=== PATIENT | female | born 1945 | race Caucasian/White ===

== ENCOUNTER 2017-09-22 16:07 | Emergency (ER) | payer MEDICARE, OTHER, MEDICAID ==
[2017-09-22] MEDS ORDERED: RANI-366 PO (16:36)
[2017-09-22] MEDS ORDERED: POTA2TAB29 PO (16:36)
[2017-09-22] MEDS ORDERED: GABA-549 PO (16:36)
[2017-09-22] MEDS ORDERED: METH4TAB67 PO (16:36)
[2017-09-22] MEDS ORDERED: IBUP600T22 PO (16:36)
[2017-09-22] MEDS ORDERED: ALBU8.5H IH (16:36)
[2017-09-22] MEDS ORDERED: FLUT16SP19 NS (16:36)
[2017-09-22] MEDS ORDERED: CHOL10005 PO (16:36)
[2017-09-22] MEDS ORDERED: ISOS30TA54 PO (16:36)
[2017-09-22] MEDS ORDERED: ASPI-1471 PO (16:36)
[2017-09-22] MEDS ORDERED: CITA-145 PO (16:36)
[2017-09-22] MEDS ORDERED: VITS1TAB2 PO (16:36)
[2017-09-22] MEDS ORDERED: OXYB5TAB86 PO (16:36)
[2017-09-22] MEDS ORDERED: LOSA50TA72 PO (16:36)
[2017-09-22] MEDS ORDERED: HYDR-4225 PO (16:36)
[2017-09-22] MEDS ORDERED: LACT1CAP6 PO (16:36)
[2017-09-22] MEDS ORDERED: THEO400T9 PO (16:36)
[2017-09-22] MEDS ORDERED: ALBUTEROL/IPRATROPIUM 3 ML NEB NEB ONE (16:45)
[2017-09-22] MEDS ORDERED: methylPREDNIS SUCC 125 MG/2ML IVP ONE (16:45)
[2017-09-22 16:52] LABS: PLATELET COUNT, AUTOMATED 213 K/uL (150-450)
--- NOTE | 2017-09-22 17:34 | EKG ---
FACILITY: [facility] [place] PATIENT NAME: KATHE COTE : [id number] MR: [id number] V: [id number] EXAM DATE: ORDERING PHYSICIAN: MYLES JOHNSON TECHNOLOGIST: NIXON Dent Reason : Blood Pressure : / mmHG Vent. Rate : 083 BPM Atrial Rate : 083 BPM P-R Int : 132 ms QRS Dur : 138 ms QT Int : 430 ms P-R-T Axes : 102 018 060 degrees QTc Int : 505 ms Normal sinus rhythm Right bundle branch block Abnormal ECG No previous ECGs available Confirmed by LUCAS NAVARRO ([id number]) on 09/22/2017 7:54:24 PM Referred By: Confirmed By:LUCAS NAVARRO
--- NOTE | 2017-09-22 17:59 | RADIOLOGY IMAGING REPORT ---
[place]AC[place] [facility] [place] PATIENT NAME: Gaby Carroll : 1945 MR: [id number] V: [id number] EXAM DATE: ORDERING PHYSICIAN: MYLES JOHNSON TECHNOLOGIST: Location: [facility] Patient: Gaby Carroll : 1945 Visit/Account:[id number] Date of Sevice: 09/22/2017 2 VIEWS CHEST INDICATION: Shortness of breath. COMPARISON: None available FINDINGS: Cardiomediastinal silhouette and pulmonary vessels within normal limits. There is increased interstitial opacities seen in the lungs diffusely more so on the upper lobe bilat erally. No focal area of consolidation. There is no pneumothorax or pleural effusion. No discrete nodule. Upper abdomen is unremarkable. No acute bony abnormality. IMPRESSION: 1. There is increased interstitial opacities seen in both lungs without focal infiltrate. This is no nspecific and could be due to chronic interstitial disease, chronic versus acute pneumonitis or edema . Report Dictated By: Michael Steele at 09/22/2017 5:53 PM Report E-Signed By: Michael Steele at 09/22/2017 5:56 PM WSN:[id number]
[2017-09-22] MEDS ORDERED: NS(*) 0.9% 500 ML BAG 500 ML IV ONE (18:35)
[2017-09-22] MEDS ORDERED: AMOX-559 PO (18:38)
[2017-09-22] MEDS ORDERED: PRED20TA6 PO (18:38)
--- NOTE | 2017-09-22 18:45 | ER Report ---
History and Physical Time Seen By MD: 16:21 Hx. of Stated Complaint: PATIENT REPORTS THAT SHEIS TRAVELING THROUGH [place] FROM [place]. SHE STARTED HAVING SHORTNESS OF BREATH FOR THE LAST 5 HOURS OR SO. HPI/ROS Chief Complaint: "Shortness of breath" HPI: 72-year-old patient presents to the emergency department with her sister. The two are traveling from [place] and arrived in [place], [place] four hours ago. The patient reports that she became very short of breath when they stopped at [employer]. Her inhaler was used without improvement of symptoms. Her sister states that she put on her hand-held pulse oximeter and her oxygen saturation was in the 60s. When they saw the low oxygen saturation they came straight to the hospital. She reports her past medical history is significant for asthma and COPD. ROS: Constitutional: denies fever or chills HEENT: denies headache, denies changes in vision, denies sore throat, denies cough Respiratory: reports difficulty breathing, reports shortness of breath CV: denies chest pain, denies changes in lower extremity edema GI/: denies nausea or vomiting, denies abdominal pain Allergies: Coded Allergies: No Known Drug Allergies (Unverified , 09/22/17) Home Meds Active Scripts Amoxicillin/Pot Clav 875-125 Mg Tab (AUGMENTIN 875-125 TABLET) 1 Each Tablet, 1 TAB PO Q12H for 10 Days, #20 TAB Prov:DERRELL ADDISON [facility] 09/22/17 Prednisone (PREDNISONE) 20 Mg Tablet, 20 MG PO BID for 5 Days, #10 TAB Prov:DERRELL ADDISON [facility] 09/22/17 Reported Medications Ibuprofen (IBUPROFEN) 600 Mg Tablet, 1 TAB PO Q6H, TAB 09/22/17 Lactobacillus Combination No.4 (PROBIOTIC) 1 Each Capsule, 1 EACH PO QDAY, CAPSULE 09/22/17 Ranitidine Hcl (ZANTAC) 150 Mg Tablet, 150 MG PO BID, TAB 09/22/17 Potassium Gluconate (POTASSIUM GLUCONATE) 500 Mg Tablet, 595 MG PO QDAY 09/22/17 Vit A,C & E/Lutein/Minerals (HEALTHY EYES TABLET) 1 Each Tablet, 1 EACH PO QDAY 09/22/17 Aspirin (ASPIR 81) 81 Mg Tablet.dr, 81 MG PO QDAY, TAB 09/22/17 Gabapentin (GABAPENTIN) 300 Mg Capsule, 100 MG PO PRN, CAPSULE 09/22/17 Isosorbide Mononitrate (ISOSORBIDE MONONITRATE ER) 30 Mg Tab.er.24h, 30 MG PO QDAY 09/22/17 Losartan Potassium (LOSARTAN POTASSIUM) 50 Mg Tablet, 50 MG PO QDAY 09/22/17 Hydroxyzine Hcl (HYDROXYZINE HCL) 25 Mg Tablet, 25 MG PO PRN 09/22/17 Citalopram Hydrobromide (CITALOPRAM HBR) 20 Mg Tablet, 40 MG PO QDAY, #5 TAB 09/22/17 Oxybutynin Chloride (OXYBUTYNIN CHLORIDE) 5 Mg Tablet, 5 MG PO QDAY, TAB 09/22/17 Theophylline Anhydrous (THEOPHYLLINE) 400 Mg Tablet.er, 400 MG PO QDAY 09/22/17 Fluticasone Prop 50 Mcg Ns (FLONASE 50 MCG NS) 16 Gm Taiban.susp, 2 SPRAYS NS QDAY, BOT 09/22/17 Cholecalciferol (Vitamin D3) (VITAMIN D3) 1,000 Unit Tablet, 1000 UNIT PO QDAY, TAB 09/22/17 Albuterol Sulfate 90 Mcg/Act (PROAIR HFA 90 MCG/ACT) 8.5 Gm Hfa.aer.ad, 2 PUFF IH Q4-6H, INHALER 09/22/17 Methylprednisolone (METHYLPREDNISOLONE) 4 Mg Tablet, 4 MG PO QDAY, TAB 09/22/17 Past Medical/Surgical History Asthma since childhood, COPD, hypertension Hx Substance Use Disorder: No Hx Alcohol Use: No Constitutional Vital Sign - Last 24 Hours 09/22/17 09/22/17 09/22/17 09/22/17 16:14 16:16 16:25 16:30 Pulse 85 Resp 24 B/P (MAP) 159/81 159/81 (107) 141/84 (103) 142/82 (102) Pulse Ox 63 O2 Delivery Room Air 09/22/17 09/22/17 09/22/17 09/22/17 16:37 17:00 17:00 17:00 Pulse 80 80 Resp 23 14 B/P (MAP) 146/82 (103) Pulse Ox 96 93 O2 Delivery Nasal Cannula 09/22/17 09/22/17 09/22/17 09/22/17 17:07 17:10 17:10 17:30 Pulse 91 80 Resp 28 14 B/P (MAP) 154/84 (107) Pulse Ox 93 93 O2 Delivery Nasal Cannula 09/22/17 09/22/17 09/22/17 09/22/17 18:00 18:07 18:30 18:35 Pulse 80 Resp 40 B/P (MAP) 142/70 (94) 108/89 (95) Pulse Ox 98 84 O2 Delivery Room Air 09/22/17 09/22/17 09/22/17 09/22/17 18:37 18:44 19:00 19:07 Pulse 75 80 Resp 21 12 B/P (MAP) 154/79 (104) Pulse Ox 98 92 96 O2 Delivery Nasal Cannula O2 Flow Rate 3.0 09/22/17 09/22/17 09/22/17 09/22/17 19:30 19:37 19:42 20:00 Pulse 75 75 Resp 10 22 B/P (MAP) 138/92 (107) 154/89 (110) Pulse Ox 95 95 Intake and Output 09/22/17 09/22/17 09/23/17 15:00 23:00 07:00 Intake Total 500 ml Balance 500 ml Physical Exam Constitutional: 72-year-old female in respiratory distress able to protect her airway HEENT: normocephalic, atraumatic, pupils BL round, equal and reactive to light and accommodation, no lymphadenopathy Respiratory: tachypnea, increased work of breathing, CTA BL CV: Clear S1 S2, present murmur Musculoskeletal: moves all extremities Neuro: alert and oriented, interactive Differential Diagnoses: COPD exacerbation, PE, TX, pneumonia, UTI Medical Decision Making Data Points Result Diagram: 09/22/17 1628 09/22/17 1628 Laboratory Hematology Test 09/22/17 16:28 09/22/17 17:05 Red Blood Count 4.15 M/uL (4.17-5.56) Mean Corpuscular Volume 82.0 fL (80.0-96.0) Mean Corpuscular Hemoglobin 27.6 pg (26.0-33.0) Mean Corpuscular Hemoglobin Concent 33.7 g/dL (32.0-36.0) Red Cell Distribution Width 16.8 % (11.5-14.5) Mean Platelet Volume 7.6 fL (7.2-11.1) Neutrophils (%) (Auto) 67.6 % (39.4-72.5) Lymphocytes (%) (Auto) 18.8 % (17.6-49.6) Monocytes (%) (Auto) 7.3 % (4.1-12.4) Eosinophils (%) (Auto) 4.4 % (0.4-6.7) Basophils (%) (Auto) 1.9 % (0.3-1.4) Nucleated RBC Relative Count (auto) 0.0 /100WBC Neutrophils # (Auto) 4.8 K/uL (2.0-7.4) Lymphocytes # (Auto) 1.3 K/uL (1.3-3.6) Monocytes # (Auto) 0.5 K/uL (0.3-1.0) Eosinophils # (Auto) 0.3 K/uL (0.0-0.5) Basophils # (Auto) 0.1 K/uL (0.0-0.1) Nucleated RBC Absolute Count (auto) 0.00 K/uL Sodium Level 140 mmol/L (137-145) Potassium Level 3.8 mmol/L (3.5-5.0) Chloride Level 101 mmol/L (98-107) Carbon Dioxide Level 27 mmol/L (22-31) Blood Urea Nitrogen 22 mg/dl (7-18) Creatinine 0.80 mg/dl (0.52-1.04) Glomerular Filtration Rate Calc > 60.0 Random Glucose 158 mg/dl (75-110) Calcium Level 8.5 mg/dl (8.4-10.2) Total Bilirubin 0.3 mg/dl (0.2-1.3) Aspartate Amino Transf (AST/SGOT) 39 U/L (0-35) Alanine Aminotransferase (ALT/SGPT) 31 U/L (0-56) Alkaline Phosphatase 100 U/L (0-126) Troponin I < 0.012 ng/ml Total Protein 6.8 g/dl (6.3-8.2) Albumin 3.5 g/dl (3.5-5.0) Urine Color Yellow Urine Clarity Slightly-cloudy Urine pH 5.0 pH (4.8-9.5) Urine Specific [place] 1.020 Urine Protein 30 mg/dL (NEGATIVE) Urine Glucose (UA) Negative mg/dL (NEGATIVE) Urine Ketones Negative mg/dL (NEGATIVE) Urine Blood Small (NEGATIVE) Urine Nitrite Positive (NEGATIVE) Urine Bilirubin Negative (NEGATIVE) Urine Urobilinogen Negative mg/dL (0.2-1.9) Urine Leukocyte Esterase Trace (NEGATIVE) Urine RBC 1 /HPF (0-2/HPF) Urine WBC 24 /HPF (0-5/HPF) Urine Squamous Epithelial Cells Many /LPF (</=FEW) Urine Transitional Epithelial Cells Few /LPF (NONE-FEW) Urine Bacteria Many /HPF (NONE-FEW) Urine Mucus None /HPF (NONE-FEW) Chemistry Test 09/22/17 16:28 09/22/17 17:05 White Blood Count 7.1 k/uL (4.5-11.0) Red Blood Count 4.15 M/uL (4.17-5.56) Hemoglobin 11.5 g/dL (12.0-16.0) Hematocrit 34.0 % (34.0-47.0) Mean Corpuscular Volume 82.0 fL (80.0-96.0) Mean Corpuscular Hemoglobin 27.6 pg (26.0-33.0) Mean Corpuscular Hemoglobin Concent 33.7 g/dL (32.0-36.0) Red Cell Distribution Width 16.8 % (11.5-14.5) Platelet Count 213 K/uL (150-450) Mean Platelet Volume 7.6 fL (7.2-11.1) Neutrophils (%) (Auto) 67.6 % (39.4-72.5) Lymphocytes (%) (Auto) 18.8 % (17.6-49.6) Monocytes (%) (Auto) 7.3 % (4.1-12.4) Eosinophils (%) (Auto) 4.4 % (0.4-6.7) Basophils (%) (Auto) 1.9 % (0.3-1.4) Nucleated RBC Relative Count (auto) 0.0 /100WBC Neutrophils # (Auto) 4.8 K/uL (2.0-7.4) Lymphocytes # (Auto) 1.3 K/uL (1.3-3.6) Monocytes # (Auto) 0.5 K/uL (0.3-1.0) Eosinophils # (Auto) 0.3 K/uL (0.0-0.5) Basophils # (Auto) 0.1 K/uL (0.0-0.1) Nucleated RBC Absolute Count (auto) 0.00 K/uL Glomerular Filtration Rate Calc > 60.0 Calcium Level 8.5 mg/dl (8.4-10.2) Total Bilirubin 0.3 mg/dl (0.2-1.3) Aspartate Amino Transf (AST/SGOT) 39 U/L (0-35) Alanine Aminotransferase (ALT/SGPT) 31 U/L (0-56) Alkaline Phosphatase 100 U/L (0-126) Troponin I < 0.012 ng/ml Total Protein 6.8 g/dl (6.3-8.2) Albumin 3.5 g/dl (3.5-5.0) Urine Color Yellow Urine Clarity Slightly-cloudy Urine pH 5.0 pH (4.8-9.5) Urine Specific [place] 1.020 Urine Protein 30 mg/dL (NEGATIVE) Urine Glucose (UA) Negative mg/dL (NEGATIVE) Urine Ketones Negative mg/dL (NEGATIVE) Urine Blood Small (NEGATIVE) Urine Nitrite Positive (NEGATIVE) Urine Bilirubin Negative (NEGATIVE) Urine Urobilinogen Negative mg/dL (0.2-1.9) Urine Leukocyte Esterase Trace (NEGATIVE) Urine RBC 1 /HPF (0-2/HPF) Urine WBC 24 /HPF (0-5/HPF) Urine Squamous Epithelial Cells Many /LPF (</=FEW) Urine Transitional Epithelial Cells Few /LPF (NONE-FEW) Urine Bacteria Many /HPF (NONE-FEW) Urine Mucus None /HPF (NONE-FEW) Urinalysis Test 09/22/17 17:05 Urine Color Yellow Urine Clarity Slightly-cloudy Urine pH 5.0 pH (4.8-9.5) Urine Specific [place] 1.020 Urine Protein 30 mg/dL (NEGATIVE) Urine Glucose (UA) Negative mg/dL (NEGATIVE) Urine Ketones Negative mg/dL (NEGATIVE) Urine Blood Small (NEGATIVE) Urine Nitrite Positive (NEGATIVE) Urine Bilirubin Negative (NEGATIVE) Urine Urobilinogen Negative mg/dL (0.2-1.9) Urine Leukocyte Esterase Trace (NEGATIVE) Urine RBC 1 /HPF (0-2/HPF) Urine WBC 24 /HPF (0-5/HPF) Urine Squamous Epithelial Cells Many /LPF (</=FEW) Urine Transitional Epithelial Cells Few /LPF (NONE-FEW) Urine Bacteria Many /HPF (NONE-FEW) Urine Mucus None /HPF (NONE-FEW) EKG/Imaging EKG Interpretation Test Reason : Blood Pressure : / mmHG Vent. Rate : 083 BPM Atrial Rate : 083 BPM P-R Int : 132 ms QRS Dur : 138 ms QT Int : 430 ms P-R-T Axes : 102 018 060 degrees QTc Int : 505 ms Normal sinus rhythm Right bundle branch block Abnormal ECG No previous ECGs available Referred By: Confirmed By: Imaging 2 VIEWS CHEST INDICATION: Shortness of breath. COMPARISON: None available FINDINGS: Cardiomediastinal silhouette and pulmonary vessels within normal limits. There is increased interstitial opacities seen in the lungs diffusely more so on the upper lobe bilaterally. No focal area of consolidation. There is no pneumothorax or pleural effusion. No discrete nodule. Upper abdomen is unremarkable. No acute bony abnormality. IMPRESSION: 1. There is increased interstitial opacities seen in both lungs without focal infiltrate. This is nonspecific and could be due to chronic interstitial disease, chronic versus acute pneumonitis or edema. Report Dictated By: Michael Steele at 09/22/2017 5:53 PM Report E-Signed By: Michael Steele at 09/22/2017 5:56 PM ED Course/Re-evaluation ED Course 72-year-old patient presents to the Emergency Department with shortness of breath. She reports a long history of asthma and COPD. She and her sister are traveling from [place] and have been in [place] for the last four hours. History and physical examination were obtained. Differnential diganoses were considered and shared with the patient. CBC, CMP, troponin, UA, EKG, and chest x-ray are indicative for UTI, dehydration, and potential pneumonia. While in the ER today she was administered 4 L of oxygen and her oxygen saturations immediately improved. 500mls of NS and a breathing treatment were also adminsitered. The patient reports that she is feeling much better. She will be discharged today on antibiotics, prednisone, and oxygen. She has been encouraged to follow up with her primary care provider once she gets home. She has been encouraged to increase fluid intake and be cautious of altitude sickness. Decision to Disposition Date: Sep 22, 2017 Decision to Disposition Time: 18:49 Depart Departure Latest Vital Signs Vital Signs Date Time Temp Pulse Resp B/P (MAP) Pulse Ox O2 Delivery O2 Flow Rate FiO2 09/22/17 20:00 154/89 (110) 09/22/17 19:42 75 22 95 09/22/17 18:44 Nasal Cannula 3.0 Impression: Primary Impression: Shortness of breath associated with high altitude Additional Impressions: UTI (urinary tract infection) COPD exacerbation Condition: Improved Disposition: HOME OR SELF-CARE New Scripts Amoxicillin/Pot Clav 875-125 Mg Tab (AUGMENTIN 875-125 TABLET) 1 Each Tablet 1 TAB PO Q12H for 10 Days, #20 TAB Prov: DERRELL ADDISON 09/22/17 Prednisone (PREDNISONE) 20 Mg Tablet 20 MG PO BID for 5 Days, #10 TAB Prov: DERRELL ADDISON 09/22/17 Departure Forms: ER Transition Record, Home Oxygen, Nebulizer RX, Durable Medical Equipment-Oxygen: Oxygen Concentrator, Portable Oxygen Gas Reason for Use/Diagnosis: COPD exacerbation, hypoxia Start Date of the Order: Sep 22, 2017 Dosage or Concentration (if applicable) - LPM: 3 Route of Administration (if applicable): Nasal Cannula Frequency of Use: Continuous Duration Home O2 Required: 1 Duration Units: Months Room Air Oxygen Saturation: 84 ER Prescribing Physician's Name: Derrell Addison NPI Numbers for Local ER MDs: Azael [id number] Medications Reconciliation, Patient Portal Information Patient Instructions: COPD (Chronic Obstructive Pulmonary Disease) (ED) Additional Instructions: Increase fluid intake. Get plenty of rest. Limit activity by how you feel, if you are feeling too tired or short of breath then stop. Follow up with your primary care provider when you return home. Go to an ER if condition worsens. Take medications as prescribed. Continue with your current medications. Problem Qualifiers Primary Impression: Shortness of breath associated with high altitude Encounter type: initial encounter Qualified Codes: T70.29XA - Other effects of high altitude, initial encounter Additional Impressions: UTI (urinary tract infection) Urinary tract infection type: acute cystitis Hematuria presence: without hematuria Qualified Codes: N30.00 - Acute cystitis without hematuria DERRELL ADDISON Sep 22, 2017 18:45
[2017-09-22] MEDS ORDERED: predniSONE 20 MG TAB PO ONE (19:05)
[2017-09-22] MEDS ORDERED: AMOX/CLAV 875 MG TAB PO ONE (19:05)
[2017-09-22 20:00] VITALS: BP 154/89
== END 2017-09-22 20:22 | disposition home or self-care (01) ==
LOC: ER 16:18
DX: T70.29XA Other effects of high altitude, initial encounter (principal); N30.00 Acute cystitis without hematuria; J44.1 Chronic obstructive pulmonary disease with (acute) exacerbation
CPT/HCPCS: 71046; 81001; 84484; 85025; 87077; 87088; 87186; 93005; 94640; 96361; 96374; 99284; A9270; J2930; J7040; J7512; J7620; 82040; 82247; 82310; 82374; 82435; 82565; 82947; 84075; 84132; 84155; 84295; 84450; 84460; 84520